=== PATIENT | female | born 1945 | race Caucasian/White ===

== ENCOUNTER → 2020-09-24 | Outpatient (CLI) | payer MEDICARE, OTHER | END | disposition home or self-care (01) | LOC: RAD 09:44 | PROVIDERS: ATTEND Neurological Surgery | DX: M47.817 Spondylosis without myelopathy or radiculopathy, lumbosacral region (principal); M48.07 Spinal stenosis, lumbosacral region; M48.05 Spinal stenosis, thoracolumbar region; M41.86 Other forms of scoliosis, lumbar region | CPT/HCPCS: 72148 ==